=== PATIENT | male | born 1975 | race Asian ===

== ENCOUNTER 2024-01-02 11:11 | Outpatient (REF) | payer OTHER, SELFPAY ==
[2024-01-02 16:31] LABS: Urine Cytology See Pathology rpt
== END 2024-01-02 11:12 | disposition home or self-care (01) ==
LOC: HO.LNP 11:11
PROVIDERS: PCP Internal Medicine; Visit Provider Nurse Practitioner Family
DX: R35.0 Frequency of micturition (principal); R39.15 Urgency of urination
CPT/HCPCS: 51798; 81003; 88112; 99202

== ENCOUNTER 2024-01-02 11:11 | Outpatient (AMB) | payer OTHER, SELFPAY ==
--- NOTE | 2024-01-02 11:29 | A.OFFVIS_ITS ---
Intake Visit Reasons: BPH Intake Note: New Patient presents today for initial visit to establish treatment for : BPH Urology Medications: none Allergies to Antibiotic: None Blood Thinner: None PVR: 12ml's Offbearer Required: No Accompanied by: Self / Same As Patient Allergies house dust Allergy (Verified 01/02/24 12:13) Unknown Medication List - Last Reconciled 01/02/24 by RICK Ochoa loratadine (Claritin) 30 mg PO DAILY HPI Comments Details: Ruth is a 48-year-old male patient of Dr. Jackson. He presents to the office today as a new patient for ongoing lower urinary tract symptoms. In discussion with the patient today he reports having previous followed up with [facility] Dr Dubose at which time recommendations were made for Myrbetriq. However, he has not started this medication and was looking to have a 2nd opinion. He denies nocturia. He reports getting up approximately 1 time per night. During today's office visit he continues to reiterate previous urology records. In review of previous urology records it appears symptoms have been longstanding. He suspects that symptoms began after direct contact of toilet water 3 years ago. Patient was offered cystoscopy to evaluate for micro hematuria however he declined. In office urinalysis results reviewed with the patient today. 2+ microscopic hematuria. PVR 12 mL. PSA 10/21 1.2. Discussed obtaining retroperitoneal ultrasound for further assessment evaluation. Discussed bladder diary. Urinal provided however patient discusses his reluctancy in performing bladder diary. He otherwise denies incontinence, nocturia, hematuria, dysuria, foul smelling urine, changes to urinary stream, fl ank pain, fever, and or chills. He denies any previous history of nicotine dependence and or chemical exposure. LETICIA offered however deferred. Patient discusses he might be open to wanting male provider. Discussed follow-up with Dr. Frias however he declines at this time. Discussed at length potential causes of microscopic hematuria. Also discussed bladder triggers and irritants. PFSH Medical History (Updated 01/02/24 @ 13:09 by RICK Ochoa) Frequency of micturition Nocturia Benign prostatic hyperplasia with lower urinary tract symptoms Surgical History History of nasal septoplasty Review of Systems Const All systems reviewed & are unremarkable except as noted in HPI and below Physical Exam Const General: cooperative, healthy appearing, comfortable, no acute distress, well developed, alert and awake Orientation/consciousness: patient oriented x3 Limitations: no limitations HEENT Head: Yes normal to inspection, Yes normocephalic and Yes atraumatic Ears: hearing grossly normal bilaterally Eyes General: appearance normal, both eyes and all related structures Neck Neck: Yes normal visual inspection and Yes trachea midline Chest Chest palpation & inspection: normal inspection of the chest Resp Effort & Inspection: normal respiratory effort and able to speak in complete sentences Cardio Rate: regular rate GI Inspection: Yes normal to inspection General: Yes no CVA tenderness Back/Spine/Pelvis Back: no CVA tenderness Skin General skin exam: no rashes or lesions noted Neuro General: patient oriented x3 Extrem General: Yes normal to inspection Psych Appearance: grossly normal and well kempt Mental Status: mental status grossly normal Speech and movement: Normal speech and movement present and Clear speech present Affect: normal affect Attitude: cooperative Thought process: Normal thought process present Thought content: Normal thought content present Insight: Fair insight present (Psych) Judgement: Fair judgement present (Psych) Office Procedures Post Void Residual Post Residual Void Post Void Residual (PVR): 12 34028-Ools Void Residual by ultrasound Results AMB Urinalysis, Automated UA Leukoctes 0 Ashlyn/uL Last Edit by Daphney Pool on 01/02/24 11:48 UA Nitrite Last Edit by Daphney Pool on 01/02/24 11:48 UA Urobilinogen 0.2 mg/dL Last Edit by Daphney Pool on 01/02/24 11:48 UA Protein 15 mg/dL Last Edit by Daphney Pool on 01/02/24 11:48 UA pH 6.0 Last Edit by Daphney Pool on 01/02/24 11:48 UA Blood 80 Alfonso/uL Last Edit by Daphney Pool on 01/02/24 11:48 UA Specific [place] 1.025 Last Edit by Daphney Pool on 01/02/24 11:48 UA Ketone Negative Last Edit by Daphney Pool on 01/02/24 11:48 UA Bilirubin 0 mg/dL Last Edit by Daphney Pool on 01/02/24 11:48 UA Glucose 0 mg/dL Last Edit by Daphney Pool on 01/02/24 11:48 Results Reviewed Results Reviewed: Laboratory Last Values Urine pH (Auto) 6.0 01/02/24 11:47 Specific [place] (Auto) 1.025 01/02/24 11:47 Urine Protein (Auto) 15 mg/dL 01/02/24 11:47 Glucose (UA)(Auto) 0 mg/dL 01/02/24 11:47 Urine Ketones (Auto) Negative 01/02/24 11:47 Urine Blood (Auto) 80 Alfonso/uL 01/02/24 11:47 Urine Bilirubin (Auto) 0 mg/dL 01/02/24 11:47 Urine Urobilinogen (Auto) 0.2 mg/dL 01/02/24 11:47 Leukocyte Esterase (Auto) 0 Ashlyn/uL 01/02/24 11:47 Assessment & Plan Assessment & Plan (1) Urinary urgency: Code(s): R39.15 - Urgency of urination Category: Medical (2) Frequency of micturition: Code(s): R35.0 - Frequency of micturition Category: Medical Plan In office urinalysis results reviewed with the patient today; as noted above; will send for urine cytology. PVR 12 mL. Discussed healthy bladder habits. Discussed bladder triggers/irritants. Discussed at length potential causes of microscopic hematuria as well as further workup. Will obtain retroperitoneal ultrasound for further assessment evaluation. Urinal provided for potential bladder diary. Follow-up in 1-3 months with imaging to be completed prior; or sooner with any issues, concerns, and or questions. Orders: Orders AMB Urinalysis Automated Today Z13.9 - Encounter for screening, unspecified US retroperitoneal comp Today R35.0 - Frequency of micturition, R39.15 - U rgency of urination AMB Post Void Residual by ultrasound Today Z13.9 - Encounter for screening, unspecified Urine Cytology Today Z13.9 - Encounter for screening, unspecified Patient Instructions: The patient had an opportunity to ask questions regarding the treatment plan. All questions were answered. Physical exam, labs, and imaging were discussed and reviewed in detail. As well as risks, benefits, and discussion of treatment choices. No major barriers to understanding were identified. The patient expressed understanding and agreement with the above treatment plan. The patient was made aware they should contact our office by phone for worsening of their current condition, the appearance of new symptoms, or with any questions or concerns. Compliance is encouraged with any medications and follow up testing that is ordered. It is a privilege to be allowed the opportunity to p articipate in? your urological care.? Again, if you have any questions or concerns If you have any questions or concerns please do not hesitate to contact me. The office is [phone]. This note is constructed using voice recognition software. While every effort has been made to ensure accuracy healthcare network consultant errors may have been included. Yours sincerely, RICK Ochoa Coding Level of Care Code New Pt Level 4 (16406) Diagnoses Urinary urgency R39.15 Frequency of micturition R35.0 CPT Codes Post Residual Void - PVR CPT Code: 13185-Wdug Void Residual by ultrasound ([id number]) Time Spent (min) 40
== END 2024-01-02 12:30 | disposition home or self-care (01) ==
PROVIDERS: PCP Internal Medicine; Visit Provider Nurse Practitioner Family
DX: R39.15 Urgency of urination (principal); R35.0 Frequency of micturition; Z13.9 Encounter for screening, unspecified
CPT/HCPCS: 99204

== ENCOUNTER 2024-03-06 13:52 | Outpatient (REF) | payer OTHER, SELFPAY ==
--- NOTE | ~2024-03-06 | US_ITS ---
EXAMINATION: US RETROPERITONEAL COMPLETE (RENAL) CLINICAL INFORMATION: Frequency of micturition. COMPARISON: None available. TECHNIQUE: Real-time imaging of the kidneys and bladder. FINDINGS: RIGHT KIDNEY: 10.1 x 5.3 x 5.8 cm (SAG x AP x TRV). The kidney is normal in size, contour, and echogenicity. Renal cortical thickness is normal. No calculi or focal parenchymal lesions. No hydronephrosis. LEFT KIDNEY: 10.3 x 5.2 x 4.6 cm (SAG x AP x TRV). The kidney is normal in size, contour, and echogenicity. Renal cortical thickness is normal. No calculi or focal parenchymal lesions. No hydronephrosis. BLADDER: Well distended and normal. Bilateral ureteral jets are demonstrated. Prevoid bladder volume is 252 mL. Postvoid bladder volume is 31.7 mL. PROSTATE GLAND: 3.0 x 3.6 x 3.9 cm, volume 22 mL. US/US retroperitoneal comp IMPRESSION: 1. Unremarkable sonographic imaging of the kidneys. Specifically, no renal calculi or hydronephrosis of either kidney. 2. Prominent post void bladder residual of 32 mL. Electronically signed by: Luis Hurd MD 03/30/2024 09:29 AM EDT
== END 2024-03-06 13:53 | disposition home or self-care (01) ==
LOC: HO.HMGCX 13:52
PROVIDERS: PCP Family Medicine; Visit Provider Nurse Practitioner Family
DX: R35.0 Frequency of micturition (principal); R39.15 Urgency of urination
CPT/HCPCS: 76770

== ENCOUNTER 2024-04-16 14:13 | Outpatient (AMB) | payer OTHER, SELFPAY ==
--- NOTE | 2024-04-16 14:19 | MHC.OFFVIS ---
Intake Visit Reasons: follow up/US Intake Note: Patient is present for Ultrasound Allergies house dust Allergy (Verified 01/02/24 12:13) Unknown HPI Comments Details: Ruth is a pleasant [place] gentleman. He is a patient of Dr. Jackson. He seen for the following urologic conditions - urinary urgency and frequency Prior evaluation at [facility] Had prescription for Myrbetriq at that time Is hesitant to use medications due to suspicion of side effects Symptoms have been progressive Minimal nocturia Discussed natural history of bladder instability. Has adequate stream. Provided printed information regarding behavioral, diet, pharmaceutical management of bladder instability Follow-up p.r.n. [facility] Medical History (Updated 01/02/24 @ 13:09 by RICK Ochoa) Frequency of micturition Nocturia Benign prostatic hyperplasia with lower urinary tract symptoms Surgical History History of nasal septoplasty Review of Systems Const Denies chills and Denies fever(s) Card Reports no additional complaints and Denies syncope Resp Denies cough GI Denies abdominal pain and Denies heartburn Reports as per HPI and Denies change in libido Neuro Denies syncope Psych Denies change in libido Endo Denies change in libido Physical Exam Const General: cooperative, healthy appearing, comfortable and no acute distress Orientation/consciousness: patient oriented x3 HEENT Face and sinus: Yes normal facial exam Mouth: moist mucous membranes Neck Neck: Yes normal visual inspection, Yes full ROM and Yes trachea midline Chest Chest palpation & inspection: normal inspection of the chest Resp Effort & Inspection: normal respiratory effort, able to speak in complete sentences and no respiratory distress GI Inspection: Yes normal to inspection Back/Spine/Pelvis Cervical Spine: normal cervical lordosis Thoracic/Lumbar Spine: thoracic and lumbar spine normal to inspection Skin General skin exam: no rashes or lesions noted Neuro General: patient oriented x3, gait normal, tone normal and moves all extremities Extrem General: Yes normal to inspection and Yes capillary refill normal Assessment & Plan Assessment & Plan (1) Urinary urgency: Code(s): R39.15 - Urgency of urination Category: Medical (2) Frequency of micturition: Code(s): R35.0 - Frequency of micturition Category: Medical Plan P.r.n. follow-up Patient Instructions: Imaging studies, laboratory and physical exam results were discussed and reviewed in detail. No major barriers to patient understanding were identified. An opportunity to ask questions regarding the treatment plan was provided. All questions were answered. The patient expressed understanding and agreement with the above treatment plan. The patient is aware they should contact our office by phone for worsening of their current condition or the appearance of new urologic symptoms. Compliance is encouraged with any medications and followup testing that is ordered. It is a privilege to participate in the urologic care of your patient. If you have any questions or concerns regarding treatment for the above conditions, or other urologic issues, please do not hesitate to contact me. The office telephone contact is [phone]. This note is constructed using voice recognition software. While every effort has been made to ensure accuracy weights and measures inspector errors may have been included. Yours sincerely, Dr David Frias MD, [facility] - Urology Providers of Expert, Compassionate Care for the Genitourinary System Coding Level of Care Code Est Pt Level 3 (96520) Diagnoses Urinary urgency R39.15 Frequency of micturition R35.0
== END 2024-04-16 14:36 | disposition home or self-care (01) ==
PROVIDERS: PCP Family Medicine; Visit Provider Urology
DX: R39.15 Urgency of urination (principal); R35.0 Frequency of micturition
CPT/HCPCS: 99213

== ENCOUNTER → 2024-04-16 14:13 | Outpatient (BNVA) | payer OTHER, SELFPAY | PROVIDERS: PCP Family Medicine; Visit Provider Urology | DX: R39.15 Urgency of urination (principal); R35.0 Frequency of micturition | CPT/HCPCS: 99212 ==